=== PATIENT | male | born 1975 | race Caucasian/White ===

== ENCOUNTER 2019-11-06 01:13 | Emergency (ER) | payer OTHER, SELFPAY ==
[2019-11-06 01:46] LABS: Absolute Lymphocytes (CBC) 1.5 K/uL (0.7-4.9); Basophils % 0.4 % (0-1.3); Hematocrit 43.3 % (39.6-49.0); Lymphocytes % 26.2 % (15.3-44.8); MPV 8.8 fL (7.6-11.3); RBC Red Blood Cell Count 4.72 M/uL (4.33-5.43)
[2019-11-06 01:51] LABS: Protime INR 1.06
[2019-11-06 02:12] LABS: ALT/SGPT 18 U/L (12-78); AST/SGOT 14 U/L (15-37); Albumin 3.6 g/dL (3.4-5.0); Alkaline Phosphatase 60 U/L (45-117); BUN Blood Urea Nitrogen 15 mg/dL (7-18); Bicarbonate 25 mmol/L (21-32); Bilirubin Direct 0.1 mg/dL (0-0.2); Bilirubin Total 0.5 mg/dL (0.2-1.0); Glucose Level 131 mg/dL (74-106); Potassium 3.4 mmol/L (3.5-5.1); Protein, Total 7.2 g/dL (6.4-8.2); Sodium Level 141 mmol/L (136-145)
--- NOTE | 2019-11-06 04:15 | EDPHYS ---
Physician Documentation [facility] Name: Ponce Silva Age: 44 yrs Sex: Male : 1975 Arrival Date: 11/06/2019 Time: 01:15 Bed 5 Private MD: ED Physician Jb Mcmahan HPI: 11/05 02:36 This 44 yrs old Male presents to ER via EMS with complaints of Drug Abuse. tw4 02:36 This 44 yrs old Male presents to ER via EMS with complaints of Drug Abuse. tw4 02:36 The patient presents with decreased responsiveness. Onset: The symptoms/episode tw4 began/occurred just prior to arrival. Possible causes: drug use, narcotics. Associated signs and symptoms: The patient has no apparent associated signs or symptoms. Current symptoms: In the emergency department the patient's symptoms are unchanged from the initial presentation. Patient's baseline: Neuro: alert and fully oriented, Motor: no deficits, Ambulation: walks without assistance, Speech: normal. The patient has not experienced similar symptoms in the past. found unresponsive by girlfriend who called 911. Pt received 1 mg Narcan and was immediately responsive. Historical: - Allergies: 01:23 No Known Allergies; fc - Home Meds: :23 None [Active]; fc - PMHx: :23 None; fc - PSHx: :23 Unable to obtain; fc - Immunization history:: Last tetanus immunization: up to date Flu vaccine is not up to date. - Social history:: Smoking status: Patient reports the use of cigarette tobacco products, smokes one pack cigarettes per day. Patient uses alcohol, 4 [address] drugs, heroin, Methamphetamine (Meth). ROS: 02:36 Constitutional: Negative for fever, chills, and weight loss, Eyes: Negative for injury, tw4 pain, redness, and discharge, Cardiovascular: Negative for chest pain, palpitations, and edema, Respiratory: Negative for shortness of breath, cough, wheezing, and pleuritic chest pain, Abdomen/GI: Negative for abdominal pain, nausea, vomiting, diarrhea, and constipation, Back: Negative for injury and pain, MS/Extremity: Negative for injury and deformity, Skin: Negative for injury, rash, and discoloration. 02:36 Neuro: Positive for altered mental status, Negative for dizziness, gait disturbance, headache, seizure activity, speech changes, syncope, near syncope, tinnitus, tremor. Exam: 02:36 Constitutional: This is a well developed, well nourished patient who is awake, alert, tw4 and in no acute distress. Head/Face: Normocephalic, atraumatic. Chest/axilla: Normal chest wall appearance and motion. Nontender with no deformity. No lesions are appreciated. Cardiovascular: Regular rate and rhythm with a normal S1 and S2. No gallops, murmurs, or rubs. Normal PMI, no JVD. No pulse deficits. Respiratory: Lungs have equal breath sounds bilaterally, clear to auscultation and percussion. No rales, rhonchi or wheezes noted. No increased work of breathing, no retractions or nasal flaring. Abdomen/GI: Soft, non-tender, with normal bowel sounds. No distension or tympany. No guarding or rebound. No evidence of tenderness throughout. Vital Signs: 01:10 BP 158 / 98; Pulse 100; Resp 18; Temp 98.3(O); Pulse Ox 100% on R/A; Weight 70.31 kg fc (R); Height 5 ft. 7 in. (170.18 cm) (R); Pain 0/10; 03:05 BP 121 / 87; Pulse 58; Resp 17 S; Pulse Ox 96% on R/A; jd3 03:53 BP 143 / 75; Pulse 59; Resp 16 S; Pulse Ox 97% on R/A; jd3 01:10 Body Mass Index 24.28 (70.31 kg, 170.18 cm) MDM: 01:18 Patient medically screened. tw4 02:36 Differential Diagnosis: CVA, electrolyte abnormality, overdose, volume depletion. Data tw4 reviewed: vital signs, nurses notes. Data reviewed: lab test result(s), CBC, electrolytes, hepatic panel, urine drug screen. Data interpreted: Pulse oximetry: Interpretation: normal. Counseling: I had a detailed discussion with the patient and/or guardian regarding: the historical points, exam findings, and any diagnostic results supporting the discharge/admit diagnosis, lab results. 11/05 01:18 Order name: Acetaminophen mg2 11/05 01:18 Order name: Basic Metabolic Panel mg2 11/05 01:18 Order name: CBC with Diff mg2 11/05 01:18 Order name: ETOH Level mg2 11/05 01:18 Order name: Hepatic Function mg2 11/05 01:18 Order name: PT-INR; Complete Time: 02:55 mg2 11/05 01:18 Order name: Ptt, Activated; Complete Time: 02:55 mg2 11/05 01:18 Order name: Salicylate; Complete Time: 02:55 mg2 11/05 03:10 Interpretation: Normal except: NICHOLAS 2.3. tw4 11/05 01:19 Order name: Acetaminophen Level; Complete Time: 02:55 EDMS 11/05 03:11 Interpretation: Normal except: ACETA < 2.0. tw4 11/05 01:19 Order name: Basic Metabolic Panel; Complete Time: 02:55 EDMS 11/05 03:11 Interpretation: Normal except: K 3.4; CL 108; GLUC 131. tw4 11/05 01:19 Order name: CBC with Automated Diff; Complete Time: 02:55 EDMS 11/05 01:19 Order name: Alcohol Serum/Plasma; Complete Time: 02:55 EDMS 11/05 01:19 Order name: Liver (Hepatic) Function; Complete Time: 02:55 EDMS 11/05 03:11 Interpretation: Normal except: AST 14; GLOB 3.6; A/G 1.0. tw4 11/05 01:18 Order name: EKG; Complete Time: 01:19 mg2 11/05 01:18 Order name: EKG - Nurse/Tech; Complete Time: 01:38 mg2 11/05 01:18 Order name: IV Saline Lock; Complete Time: 01:38 mg2 11/05 01:18 Order name: Labs collected and sent; Complete Time: 01:38 mg2 EC:36 Rate is 83 beats/min. Rhythm is regular. NC interval is normal. QRS interval is normal. tw4 QT interval is normal. No Q waves. T waves are Normal. No ST changes noted. Clinical impression: NSR w/ Non-specific ST/T Changes and LVH. Interpreted by me. Reviewed by me. Administered Medications: No medications were administered Disposition: 11/06/19 04:15 Discharged to Home. Impression: Opioid abuse, Adverse effect of other narcotics, Adverse effect of amphetamines, Altered mental status, unspecified, Opiod overdose. - Condition is Stable. - Discharge Instructions: Opioid Overdose, Stimulant Use Disorder-Methamphetamines, Opioid Use Disorder. - Medication Reconciliation Form, Thank You Letter, Antibiotic Education, Prescription Opioid Use form. - Follow up: Private Physician; When: Upon discharge from the Emergency Department; Reason: Recheck today's complaints, Continuance of care, Re-evaluation by your physician. - Problem is new. - Symptoms have improved. Signatures: Dispatcher [employer] EDMS Akila Catalan, ANGELO-[employer] Roxanne Jacinto RN RN Jb Mcmahan MD MD tw4 Tano Jacobs RN RN [facility] Tae Baig tt3 Corrections: (The following items were deleted from the chart) 05:07 04:15 11/06/2019 04:15 Discharged to Home. Impression: Opioid abuse; Adverse effect of tt3 other narcotics; Adverse effect of amphetamines; Altered mental status, unspecified; Opiod overdose. Condition is Stable. Forms are Medication Reconciliation Form, Thank You Letter, Antibiotic Education, Prescription Opioid Use. Follow up: Private Physician; When: Upon discharge from the Emergency Department; Reason: Recheck today's complaints, Continuance of care, Re-evaluation by your physician. Problem is new. Symptoms have improved. tw4
--- NOTE | 2019-11-06 04:15 | ER ---
Nurse's Notes [facility] Name: Ponce Silva Age: 44 yrs Sex: Male : 1975 Arrival Date: 11/06/2019 Time: 01:15 Bed 5 Private MD: Diagnosis: Opioid abuse;Adverse effect of other narcotics;Adverse effect of amphetamines;Altered mental status, unspecified;Opiod overdose Presentation: 11/05 01:10 Chief complaint: EMS states: that they were toned for pt being unresponsive. Upon their arrival pt was found with needles around him. Pt given Narcan IVP and within a few secs pt was awake and alert. Pt also stated that he used Meth tonight. Coronavirus screen: Proceed with normal triage. Patient denies a cough. Patient denies shortness of breath or difficulty breathing. Patient denies measured and/or subjective temperature greater than 100.4F prior to today's visit. Patient denies travel on a cruise ship or to a country the [facility] currently lists as an affected area. Patient denies contact with known and/or suspected case of COVID-19. Ebola Screen: Patient negative for fever greater than or equal to 101.5 degrees Fahrenheit, and additional compatible Ebola Virus Disease symptoms Patient denies exposure to infectious person. Patient denies travel to an Ebola-affected area in the 21 days before illness onset. Initial Sepsis Screen: Does the patient meet any 2 criteria? HR > 90 bpm. No. Patient's initial sepsis screen is negative. Does the patient have a suspected source of infection? No. Patient's initial sepsis screen is negative. Risk Assessment: Do you want to hurt yourself or someone else? Patient reports no desire to harm self or others. Onset of symptoms was November 06, 2019 at 00:45. Care prior to arrival: Medication(s) given: Normal saline infusion, 200 ml IV initiated. 20 GA, in the right antecubital area, Glucose check: 137. Transition of care: [facility] [address]. 01:10 Method Of Arrival: EMS: [facility] 01:10 Acuity: MILLA 3 Historical: - Allergies: 01: No Known Allergies; fc - Home Meds: : None [Active]; fc - PMHx: : None; - PSHx: 01:23 Unable to obtain; fc - Immunization history:: Last tetanus immunization: up to date Flu vaccine is not up to date. - Social history:: Smoking status: Patient reports the use of cigarette tobacco products, smokes one pack cigarettes per day. Patient uses alcohol, [address] street drugs, heroin, Methamphetamine (Meth). Screenin:10 Abuse screen: Denies threats or abuse. Nutritional screening: No deficits noted. fc Tuberculosis screening: No symptoms or risk factors identified. Fall Risk None identified. Assessment: 01:39 General: Appears in no apparent distress. comfortable, Behavior is calm, cooperative, jd3 appropriate for age. Pain: Complains of pain in head Quality of pain is described as aching. Neuro: Level of Consciousness is awake, alert, obeys commands, Oriented to person, place, time, situation. Cardiovascular: Denies chest pain, Heart tones S1 S2 present Capillary refill < 3 seconds Patient's skin is warm and dry. Respiratory: Airway is patent Respiratory effort is even, unlabored, Respiratory pattern is regular, symmetrical, Denies cough, shortness of breath. GI: Abdomen is round non-distended, Patient currently denies constipation, diarrhea, nausea, vomiting. : No signs and/or symptoms were reported regarding the genitourinary system. EENT: No signs and/or symptoms were reported regarding the EENT system. Derm: Skin is intact, Skin is dry, Skin is normal, Skin temperature is warm. Musculoskeletal: Circulation, motion, and sensation intact. Range of motion: intact in all extremities. 03:05 Reassessment: Patient appears in no apparent distress at this time. Patient and/or jd3 family updated on plan of care and expected duration. Pain level reassessed. Patient is alert, oriented x 3, equal unlabored respirations, skin warm/dry/pink. awaiting results and disposition. 03:52 Reassessment: pt standing at bedside attempting to urinate with no success. provider jd3 notified, awaiting orders. 04:30 Reassessment: Patient appears in no apparent distress at this time. Patient and/or jd3 family updated on plan of care and expected duration. Pain level reassessed. Patient is alert, oriented x 3, equal unlabored respirations, skin warm/dry/pink. pt reported understanding of discharge instructions. awaiting family/friend to pick pt up for discharge. 05:08 Reassessment: Patient appears in no apparent distress at this time. Patient and/or jd3 family updated on plan of care and expected duration. Pain level reassessed. Patient is alert, oriented x 3, equal unlabored respirations, skin warm/dry/pink. Patient states feeling better. Vital Signs: 01:10 BP 158 / 98; Pulse 100; Resp 18; Temp 98.3(O); Pulse Ox 100% on R/A; Weight 70.31 kg fc (R); Height 5 ft. 7 in. (170.18 cm) (R); Pain 0/10; 03:05 BP 121 / 87; Pulse 58; Resp 17 S; Pulse Ox 96% on R/A; jd3 03:53 BP 143 / 75; Pulse 59; Resp 16 S; Pulse Ox 97% on R/A; jd3 01:10 Body Mass Index 24.28 (70.31 kg, 170.18 cm) ED Course: 01:10 Arm band placed on Patient placed in an exam room, on a stretcher. fc 01:10 Patient has correct armband on for positive identification. Bed in low position. Call fc light in reach. Side rails up X2. Pulse ox on. NIBP on. 01:10 Maintain EMS IV. Dressing intact. Good blood return noted. Site clean \T\ dry. Gauge \T\ fc site: 20 gauge to right a/c. 01:15 Patient arrived in ED. fc 01:18 Jb Mcmahan MD is Attending Physician. tw4 01:20 Martin Lorenzo RN is Primary Nurse. jd3 01:21 Triage completed. fc 04:35 No provider procedures requiring assistance completed. IV discontinued, intact, jd3 bleeding controlled, No redness/swelling at site. Pressure dressing applied. Administered Medications: No medications were administered Outcome: 04:15 Discharge ordered by . tw4 05:05 Discharged to home via wheelchair, with family, with friend. jd3 05:05 Condition: stable 05:05 Discharge instructions given to patient, Instructed on discharge instructions, follow up and referral plans. Demonstrated understanding of instructions, follow-up care. 05:07 Patient left the ED. tt3 Signatures: Roxanne Jacinto RN RN Martin Lorenzo RN RN jJb Hernández MD MD tw4 Trim, Tae tt3
[2019-11-06 05:12] VITALS: BP 143/75; O2SAT 97
--- NOTE | 2019-11-07 08:58 | EKG ---
Test Date: 2019-11-06 Test Time: 01:36:08 [employer]: LYNN MEASUREMENT RESULTS: Intervals: Rate: 83 [place]: 136 QRSD: 104 QT: 372 QTc: 437 Malott: P: 67 [place]: 136 QRS: -46 T: 58 INTERPRETIVE STATEMENTS: Normal sinus rhythm Left anterior fascicular block Minimal voltage criteria for LVH, may be normal variant Cannot rule out Anterior infarct, age undetermined Abnormal ECG No previous ECG available for comparison Electronically Signed On 11-07-19 08:55:34 CDT by Óscar Johnson
== END 2019-11-06 05:07 | disposition home or self-care (01) ==
LOC: ER 01:13
DX: T40.2X1A Poisoning by other opioids, accidental (unintentional), initial encounter (principal); T43.625A Adverse effect of amphetamines, initial encounter; T40.695A Adverse effect of other narcotics, initial encounter; F17.210 Nicotine dependence, cigarettes, uncomplicated
CPT/HCPCS: 36415; 80048; 80076; 80320; 80329; 85025; 85610; 85730; 93005; 99283

== ENCOUNTER 2019-12-01 05:26 | Emergency (ER) | payer SELFPAY ==
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
[2019-12-01] MEDS ORDERED: NA CHLORIDE 0.9% 1,000 ML ONE (05:49)
[2019-12-01 05:50] LABS: Absolute Lymphocytes (CBC) 1.2 K/uL (0.7-4.9); Basophils % 0.4 % (0-1.3); Hematocrit 38.8 % (39.6-49.0); Lymphocytes % 10.2 % (15.3-44.8); MPV 9.4 fL (7.6-11.3); RBC Red Blood Cell Count 4.24 M/uL (4.33-5.43)
[2019-12-01 06:06] LABS: Protime INR 1.11
[2019-12-01 06:20] LABS: Barbiturates NEGATIVE (NEGATIVE); Benzodiazepines POSITIVE (NEGATIVE); Cocaine NEGATIVE (NEGATIVE); METHAMPHETAM POSITIVE (NEGATIVE); Methadone NEGATIVE (NEGATIVE); Opiates NEGATIVE (NEGATIVE); Phencyclidine NEGATIVE (NEGATIVE); THC Cannibis NEGATIVE (NEGATIVE)
[2019-12-01 06:20] LABS: ALT/SGPT 25 U/L (12-78); AST/SGOT 21 U/L (15-37); Albumin 3.2 g/dL (3.4-5.0); Alkaline Phosphatase 54 U/L (45-117); BUN Blood Urea Nitrogen 7 mg/dL (7-18); Bicarbonate 29 mmol/L (21-32); Bilirubin Direct 0.1 mg/dL (0-0.2); Bilirubin Total 0.3 mg/dL (0.2-1.0); Glucose Level 118 mg/dL (74-106); Potassium 3.3 mmol/L (3.5-5.1); Protein, Total 6.7 g/dL (6.4-8.2); Sodium Level 139 mmol/L (136-145)
--- NOTE | 2019-12-01 06:58 | EDPHYS ---
Physician Documentation [facility] Name: Ponce Silva Age: 44 yrs Sex: Male : 1975 Arrival Date: 12/01/2019 Time: 05:26 Bed 4 Private MD: ED Physician Sirisha Burnette HPI: 11/30 05:33 This 44 yrs old Male presents to ER via Unassigned with complaints of ma2 Overdose. 05:33 The patient presents to the emergency department with a known poisoning, heroin. ma2 Context: Psychiatric history: none. Associated signs and symptoms: Pertinent positives: decreased level of consciousness, Pertinent negatives: auditory hallucinations, burning of skin, diarrhea, tearfulness, visual hallucinations. Severity of symptoms: At their worst the symptoms were mild in the emergency department the symptoms are unchanged. The patient has not experienced similar symptoms in the past. Historical: - Allergies: 05:35 No Known Allergies; bb - Home Meds: 05:35 None [Active]; bb - PMHx: 05:35 None; bb - Immunization history:: Adult Immunizations up to date. - Social history:: Patient/guardian denies using alcohol, street drugs, The patient lives with family, Smoking status: Patient reports the use of cigarette tobacco products, smokes one pack cigarettes per day. Patient uses street drugs, heroin, Methamphetamine (Meth). - Family history:: not pertinent. ROS: 05:33 Constitutional: Negative for fever, chills, and weight loss. ma2 05:33 All other systems are negative. Exam: 05:33 Constitutional: This is a well developed, well nourished patient who is awake, alert, ma2 and in no acute distress. Neck: Trachea midline, no thyromegaly or masses palpated, and no cervical lymphadenopathy. Supple, full range of motion without nuchal rigidity, or vertebral point tenderness. No Meningismus. Chest/axilla: Normal chest wall appearance and motion. Nontender with no deformity. No lesions are appreciated. Cardiovascular: Regular rate and rhythm with a normal S1 and S2. No gallops, murmurs, or rubs. Normal PMI, no JVD. No pulse deficits. Respiratory: Lungs have equal breath sounds bilaterally, clear to auscultation and percussion. No rales, rhonchi or wheezes noted. No increased work of breathing, no retractions or nasal flaring. Abdomen/GI: Soft, non-tender, with normal bowel sounds. No distension or tympany. No guarding or rebound. No evidence of tenderness throughout. MS/ Extremity: Pulses equal, no cyanosis. Neurovascular intact. Full, normal range of motion. Neuro: Awake and alert, GCS 15, oriented to person, place, time, and situation. Cranial nerves II-XII grossly intact. Motor strength 5/5 in all extremities. Sensory grossly intact. Cerebellar exam normal. Normal gait. Vital Signs: 05:27 BP 143 / 84; Pulse 109; Resp 16 S; Temp 98.7(O); Pulse Ox 94% on R/A; Weight 63.5 kg bb (R); Height 5 ft. 6 in. (167.64 cm) (R); 05:36 BP 143 / 84; Pulse 109; Resp 14 S; Temp 98.7(O); Pulse Ox 94% on R/A; Weight 63.5 kg bb (R); Height 5 ft. 6 in. (167.64 cm) (R); 06:15 BP 124 / 78; Pulse 100; Resp 16; Pulse Ox 98% on R/A; rv 06:50 BP 130 / 79; Pulse 105; Resp 17; Pulse Ox 97% on R/A; rv 07:09 BP 131 / 86; Pulse 101; Resp 16; Temp 99.6; Pulse Ox 100% on R/A; jr10 05:36 Body Mass Index 22.60 (63.50 kg, 167.64 cm) bb Kristen Coma Score: 06:51 Eye Response: spontaneous(4). Verbal Response: oriented(5). Motor Response: obeys rv commands(6). Total: 15. MDM: 05:32 Patient medically screened. ma2 05:33 Differential diagnosis: hypoglycemia, closed head injury, overdosed heroin. Data ma2 reviewed: vital signs, nurses notes. Counseling: I had a detailed discussion with the patient and/or guardian regarding: the historical points, exam findings, and any diagnostic results supporting the discharge/admit diagnosis, the presence of at least one elevated blood pressure reading (>120/80) during this emergency department visit, the need for outpatient follow up. Response to treatment: the patient's symptoms have markedly improved after treatment. 11/30 05:33 Order name: Acetaminophen; Complete Time: 06:57 11/30 05:33 Order name: Basic Metabolic Panel; Complete Time: 06:57 11/30 05:33 Order name: CBC with Diff; Complete Time: 06:57 11/30 05:33 Order name: ETOH Level; Complete Time: 06:57 11/30 05:33 Order name: Hepatic Function; Complete Time: 06:57 11/30 05:33 Order name: PT-INR; Complete Time: 06:57 11/30 05:33 Order name: Ptt, Activated; Complete Time: 06:57 11/30 05:33 Order name: Salicylate; Complete Time: 06:57 11/30 05:33 Order name: Urine Drug Screen; Complete Time: 06:57 11/30 05:33 Order name: EKG; Complete Time: 05:34 11/30 05:33 Order name: EKG - Nurse/Tech; Complete Time: 05:41 11/30 05:33 Order name: IV Saline Lock; Complete Time: 05:41 11/30 06:06 Order name: Urine Dipstick--Ancillary (enter results) [facility] 11/30 05:33 Order name: Labs collected and sent; Complete Time: 05:41 11/30 05:33 Order name: Urine Dipstick-Ancillary (obtain specimen); Complete Time: 05:49 ma2 Administered Medications: 05:41 Drug: NS 0.9% 1000 ml Route: IV; Rate: 1 bolus; Site: right antecubital; rv 06:51 Follow up: IV Status: Completed infusion; IV Intake: 1000ml rv Disposition: 12/01/19 06:58 Discharged to Home. Impression: Poisoning by and adverse effect of heroin. - Condition is Stable. - Discharge Instructions: Opioid Overdose. - Medication Reconciliation Form, Thank You Letter, Antibiotic Education, Prescription Opioid Use form. - Follow up: Private Physician; When: Tomorrow; Reason: Continuance of care. Signatures: Dispatcher [employer] Christie Palmer RN RN bb Sirisha Burnette MD MD ma2 Keon Hilliard RN RN rv Herminia Guidry RN RN [id number] Corrections: (The following items were deleted from the chart) 07:49 06:58 12/01/2019 06:58 Discharged to Home. Impression: Poisoning by and adverse effect jr10 of heroin. Condition is Stable. Discharge Instructions: Opioid Overdose. Forms are Medication Reconciliation Form, Thank You Letter, Antibiotic Education, Prescription Opioid Use. Follow up: Private Physician; When: Tomorrow; Reason: Continuance of care. ma2
--- NOTE | 2019-12-01 06:58 | ER ---
Nurse's Notes [facility] Name: Ponce Silva Age: 44 yrs Sex: Male : 1975 Arrival Date: 12/01/2019 Time: 05:26 Bed 4 Private MD: Diagnosis: Poisoning by and adverse effect of heroin Presentation: 11/30 05:27 Chief complaint: Patient's son or daughter states: they were toned out for report of pt bb with altered mental status he was found in the bathroom of his house by a person there pt was responsive to pain only he was given 2 doses of narcan by PD with no effect but then was given Narcan 1 mg IVP and he became A\T\O x 3. Pt admits to using heroin. Coronavirus screen: Patient denies a cough. Proceed with normal triage. Ebola Screen: No symptoms or risks identified at this time. Initial Sepsis Screen: Does the patient meet any 2 criteria? No. Patient's initial sepsis screen is negative. Does the patient have a suspected source of infection? No. Patient's initial sepsis screen is negative. Risk Assessment: Do you want to hurt yourself or someone else? Patient reports no desire to harm self or others. Onset of symptoms was December 01, 2019. Care prior to arrival: Medication(s) given: narcan 1 mg IVP, Narcan 2 nasal sprays administered by PD IV initiated. 18 GA, in the right antecubital area. 05:27 Method Of Arrival: EMS: [facility] bb 05:27 Acuity: MILLA 2 bb Historical: - Allergies: 05:35 No Known Allergies; bb - Home Meds: 05:35 None [Active]; bb - PMHx: 05:35 None; bb - Immunization history:: Adult Immunizations up to date. - Social history:: Patient/guardian denies using alcohol, street drugs, The patient lives with family, Smoking status: Patient reports the use of cigarette tobacco products, smokes one pack cigarettes per day. Patient uses street drugs, heroin, Methamphetamine (Meth). - Family history:: not pertinent. Screenin:29 Abuse screen: CONFUSED. Nutritional screening: UNKNOWN. Tuberculosis screening: rv UNKNOWN. Fall Risk No fall in past 12 months (0 pts). Secondary diagnosis (15 points) CONFUSED. IV access (20 points). Ambulatory Aid- None/Bed Rest/Nurse Assist (0 pts). Gait- Impaired (20 pts.). Mental Status- Overestimates/Forgets Limitations (15 pts.). Total Mason Fall Scale indicates Low Risk Score (25-44 pts). Fall prevention measures have been instituted. Side Rails Up X 2 Frequent Obs/Assesments occuring As available Patient and Family Educated on Fall Prevention Program and strategies. Assessment: 05:41 General: Appears unkempt, Behavior is calm, cooperative. Pain: Denies pain. Neuro: rv Level of Consciousness is awake, alert, obeys commands, Oriented to person, place, time, situation. Cardiovascular: Patient's skin is warm and dry. Rhythm is sinus tachycardia. Respiratory: Airway is patent Breath sounds are clear bilaterally. Derm: Skin is intact. 06:29 Reassessment: CALLED TO POISON CONTROL WITH CASE NUMBER, [id number]. Reassessment: rv RECOMMENDATION: NEED TO BE MONITORED FOR AT LEAST 6 HOURS SINCE THE LAST DOSE OF NARCAN. 06:34 Reassessment: MISTY SWAIN, DAUGHTER, CALL BACK NUMBER: [id number]. rv 06:51 Reassessment: Patient is alert, oriented x 3, equal unlabored respirations, skin rv warm/dry/pink. Neuro: Level of Consciousness is awake, alert, obeys commands, Oriented to person, place, time, situation. Cardiovascular: Rhythm is sinus tachycardia. Respiratory: Airway is patent Respiratory effort is even, unlabored, Breath sounds are clear bilaterally. Vital Signs: 05:27 BP 143 / 84; Pulse 109; Resp 16 S; Temp 98.7(O); Pulse Ox 94% on R/A; Weight 63.5 kg bb (R); Height 5 ft. 6 in. (167.64 cm) (R); 05:36 BP 143 / 84; Pulse 109; Resp 14 S; Temp 98.7(O); Pulse Ox 94% on R/A; Weight 63.5 kg bb (R); Height 5 ft. 6 in. (167.64 cm) (R); 06:15 BP 124 / 78; Pulse 100; Resp 16; Pulse Ox 98% on R/A; rv 06:50 BP 130 / 79; Pulse 105; Resp 17; Pulse Ox 97% on R/A; rv 07:09 BP 131 / 86; Pulse 101; Resp 16; Temp 99.6; Pulse Ox 100% on R/A; jr10 05:36 Body Mass Index 22.60 (63.50 kg, 167.64 cm) bb [place] Coma Score: 06:51 Eye Response: spontaneous(4). Verbal Response: oriented(5). Motor Response: obeys rv commands(6). Total: 15. ED Course: 05:26 Patient arrived in ED. cl3 05:28 Keon Hilliard RN is Primary Nurse. rv 05:29 Maintain EMS IV. Dressing intact. Good blood return noted. Site clean \T\ dry. Gauge \T\ rv site: g18 RIGHT AC. 05:29 Initial lab(s) drawn, by me, sent to lab. EKG done, by ED staff. rv 05:29 Patient has correct armband on for positive identification. Bed in low position. Call rv light in reach. Side rails up X2. monitoring analyst on. Pulse ox on. NIBP on. 05:32 Sirisha Burnette MD is Attending Physician. ma2 05:34 Triage completed. bb 05:49 UDS SENT. rv 05:49 Arm band placed on Patient placed in the treatment room, on a stretcher, Patient rv notified of wait time. 07:09 Report received from report received and patient care assumed, pt resting quietly in jr10 bed, responsive to verbal stimuli. Aware that he is discharged and that a family member will be picking him up. Will continue to monitor and assess until discharge. 07:43 IV discontinued, bleeding controlled, No redness/swelling at site. Pressure dressing jr10 applied. Administered Medications: 05:41 Drug: NS 0.9% 1000 ml Route: IV; Rate: 1 bolus; Site: right antecubital; rv 06:51 Follow up: IV Status: Completed infusion; IV Intake: 1000ml rv Intake: 06:51 IV: 1000ml; Total: 1000ml. rv Outcome: 06:58 Discharge ordered by . ma2 07:43 Discharged to home via wheelchair. jr10 07:43 Condition: stable 07:43 Discharge instructions given to patient, Instructed on discharge instructions, follow up and referral plans. Demonstrated understanding of instructions, follow-up care. 07:49 Patient left the ED. jr10 Signatures: Christie Wade RN Sirisha Santo MD MD ma2 Keon Hilliard RN RN rv Lewis, Charde cl3 Herminia Guidry RN RN jr10 Corrections: (The following items were deleted from the chart) 07:14 07:09 Report received from report received and patient care assumed, pt resting quietly jr10 in bed, responsive to verbal stimuli. Aware that he is discharged and that a family member will be picking him up. Will continue to monitor and assess until discharge. jr10 :14 07:09 Report received from report received and patient care assumed, pt resting quietly jr10 in bed, responsive to verbal stimuli. Aware that he is discharged and that a family member will be picking him up. Will continue to monitor and assess until discharge. jr10 07:50 07:09 BP 131 / 86; Pulse 101bpm; Resp 16bpm; Pulse Ox 100% RA; jr10 jr10
[2019-12-01 07:04] LABS: Urine Blood NEGATIVE (NEG); Urine Glucose NEGATIVE (NEG); Urine Protein 2+ (NEG); Urine Specific Gravity >1.030 (1.005-1.030); Urine pH 6.5 (5.0-7.0)
[2019-12-01 07:56] VITALS: TEMP 98.7
[2019-12-01 08:01] VITALS: BP 131/86; O2SAT 100
--- NOTE | 2019-12-03 07:38 | EKG ---
Test Date: 2019-12-01 Test Time: 05:28:46 Admin Dir: TLT MEASUREMENT RESULTS: Intervals: Rate: 105 WY: 98 QRSD: 102 QT: 360 QTc: 475 [place]: P: 41 WY: 98 QRS: -46 T: 43 INTERPRETIVE STATEMENTS: Sinus tachycardia with short W[place] Left anterior fascicular block Moderate voltage criteria for LVH, may be normal variant Abnormal ECG Compared to ECG 11/06/2019 01:36:08 Short WY interval now present Sinus rhythm no longer present Myocardial infarct finding no longer present Electronically Signed On 12-03-19 07:33:02 CDT by Óscar Johnson
== END 2019-12-01 07:49 | disposition home or self-care (01) ==
LOC: ER 05:26
DX: T40.1X1A Poisoning by heroin, accidental (unintentional), initial encounter (principal); F17.210 Nicotine dependence, cigarettes, uncomplicated
CPT/HCPCS: 36415; 80048; 80076; 80307; 80320; 80329; 81003; 85025; 85610; 85730; 93005; 96360; 99284; J7030